=== PATIENT | male | born 1970 | race Two or more races ===

== ENCOUNTER 2019-05-18 19:01 | Inpatient (IN) | payer OTHER ==
[~2019-05-18] VITALS: Ht 175.3 cm; Wt 72.6 kg
[~2019-05-18 19:01] MED LIST: CEPHALEXIN500 M1 PO
--- NOTE | 2019-05-18 19:50 | NUR ---
PTE NO CONTESTA
[2019-05-18] MEDS ORDERED: TILENOR (19:54)
--- NOTE | 2019-05-18 19:55 | NUR ---
PTE SE RECIBE POR FEVER Y PLAQUETAS BAJAS REFIERE PTE.
--- NOTE | 2019-05-18 21:57 | NUR ---
PACIENTE ALERTA Y ORIENTADO EN ELO PAUL ESFERAS, ES ORIENTADO SOBRE ORDENES MEDICAS, REFIERE ENTENDER. SE COLECTAN MUESTRAS DE CHRISTIAN, SE CANALIZA VENA Y SE ADMINISTRAN MEDICAMENTOS.
[2019-05-20] MEDS ORDERED: TYLENOL325 MG (16:50)
[2019-05-21] MEDS ORDERED: Tylenol Extra Streng PO (18:13)
== END 2019-05-21 18:20 | disposition home or self-care (01) | DRG 866 ==
LOC: ER 19:01 → MEDI 05-19 00:32 → SEC-K 05-19 00:32 → MEDI 05-19 19:33 → MEDJ 05-20 15:32
PROVIDERS: ADMIT Internal Medicine
PROC: 8E0ZXY6 Isolation (ICD-10-PCS; principal; 2019-05-19)
DX: A90 Dengue fever [classical dengue] (principal); E87.1 Hypo-osmolality and hyponatremia; E86.0 Dehydration; D72.818 Other decreased white blood cell count

== ENCOUNTER 2023-11-19 17:56 | Emergency (ER) | payer OTHER ==
[~2023-11-19] VITALS: Ht 175.3 cm; Wt 73.5 kg
[~2023-11-19 17:56] MED LIST changes: +TILENOR; +TYLENOL325 MG; +Tylenol Extra Streng PO
[2023-11-19] MEDS ORDERED: KETOROLAC TROMETHAMINE 60 MG VIAL IM ONE ×2 (18:58→19:00)
[2023-11-19] MEDS ORDERED: DICLOFENAC SODI75 MG PO (19:40)
== END 2023-11-19 19:45 | disposition home or self-care (01) ==
LOC: ER 17:57
DX: M94.0 Chondrocostal junction syndrome [Tietze] (principal)